=== PATIENT | female | born 1995 | race Caucasian/White ===

== ENCOUNTER → 2017-02-03 | Outpatient (REF) | payer BC | LOC: M SFHCWAGY 16:10 | PROVIDERS: ATTEND Nurse Practitioner Family | DX: Z12.4 Encounter for screening for malignant neoplasm of cervix (principal); Z11.3 Encounter for screening for infections with a predominantly sexual mode of transmission | CPT/HCPCS: 87491; 87591; G0123 ==

== ENCOUNTER → 2018-02-11 | Outpatient (REF) | payer BC ==
[2018-02-11 17:20] LABS: CHLAMYDIA DNA AMPLIFICATION NEGATIVE (NEGATIVE); GC DNA AMPLIFICATION NEGATIVE (NEGATIVE)
== END ==
LOC: M SFHCWAGY 14:47
DX: Z12.4 Encounter for screening for malignant neoplasm of cervix (principal); N94.6 Dysmenorrhea, unspecified
CPT/HCPCS: 87086

== ENCOUNTER → 2018-07-17 | Outpatient (REF) | payer BC ==
[2018-07-17 17:55] LABS: CHLAMYDIA DNA AMPLIFICATION NEGATIVE (NEGATIVE); GC DNA AMPLIFICATION NEGATIVE (NEGATIVE)
== END ==
LOC: M SFHCWAGY 15:42
DX: N30.01 Acute cystitis with hematuria (principal); R10.2 Pelvic and perineal pain; M54.5 Low back pain
CPT/HCPCS: 87186

== ENCOUNTER → 2018-10-01 | Outpatient (REF) | payer BC | LOC: M LAB REF 19:12 | PROVIDERS: ATTEND Physician Assistant | DX: N39.0 Urinary tract infection, site not specified (principal) ==

== ENCOUNTER → 2019-05-21 | Outpatient (REF) | payer BC | LOC: M SFHCWAGY 10:03 | PROVIDERS: ATTEND Nurse Practitioner Family | DX: N30.00 Acute cystitis without hematuria (principal) ==

== ENCOUNTER → 2020-04-26 | Outpatient (REF) | payer BC | LOC: M WUC 17:16 | PROVIDERS: ATTEND Nurse Practitioner Family | DX: R30.0 Dysuria (principal) ==

== ENCOUNTER → 2020-06-11 | Outpatient (REF) | payer BC | LOC: M WUC 17:20 | PROVIDERS: ATTEND Physician Assistant | DX: N39.0 Urinary tract infection, site not specified (principal) ==

== ENCOUNTER → 2020-06-26 | Outpatient (REF) | payer BC | LOC: M LAB REF 16:51 | PROVIDERS: ATTEND Physician Assistant | DX: N39.0 Urinary tract infection, site not specified (principal) ==

== ENCOUNTER → 2020-06-29 | Outpatient (REF) | payer BC | LOC: M SFHCWAGY 17:05 | PROVIDERS: ATTEND Nurse Practitioner Family | DX: Z11.3 Encounter for screening for infections with a predominantly sexual mode of transmission (principal) ==

== ENCOUNTER → 2020-07-12 | Outpatient (REF) | payer BC | LOC: M LAB REF 17:20 | PROVIDERS: ATTEND Physician Assistant | DX: N39.0 Urinary tract infection, site not specified (principal) ==

== ENCOUNTER → 2020-08-07 | Outpatient (REF) | payer BC ==
[2020-08-07 13:58] LABS: APPEARANCE, URINE TURBID (CLEAR); BACTERIA, URINE AUTO 3+ (NEGATIVE); BILIRUBIN, URINE AUTO NEGATIVE (NEGATIVE); BLOOD, URINE BLOOD 2+ (NEGATIVE); COLOR, URINE YELLOW (YELLOW); GLUCOSE, URINE (UA) AUTO NEGATIVE (NEGATIVE); KETONE, URINE AUTO 1+ mg/dL (NEGATIVE); LEUKOCYTE ESTERASE, URINE AUTO 3+ (NEGATIVE); MUCUS, URINE SMALL (NEGATIVE); NITRITE, URINE AUTO POSITIVE (NEGATIVE); PROTEIN, URINE AUTO 2+ mg/dL (NEGATIVE); RBC, URINE AUTO 77 /HPF (0-3); SPECIFIC GRAVITY URINE AUTO 1.014 (1.002-1.035); SQUAMOUS EPITHELIAL CELL UR AU 2 /HPF (0-6); UROBILINOGEN, URINE AUTO 0.2 mg/dL (0.0-2.0); WBC, URINE AUTO TNTC /HPF (0-3)
== END ==
LOC: M SMT 13:18
PROVIDERS: ATTEND Nurse Practitioner Family
DX: N39.0 Urinary tract infection, site not specified (principal)

== ENCOUNTER → 2020-08-24 | Outpatient (REF) | payer BC | LOC: M LAB REF 17:23 | PROVIDERS: ATTEND Physician Assistant | DX: J06.9 Acute upper respiratory infection, unspecified (principal) ==

== ENCOUNTER → 2020-09-07 | Outpatient (CLI) | payer BC ==
--- NOTE | 2020-09-07 10:26 | REP ---
INDICATION: RECURRENT UTI COMPARISON: None TECHNIQUE: Real time murray scale B-mode and color Doppler ultrasound examination using curved array transducer. FINDINGS: Right kidney measures 12.7 x 4.2 x 4.0 cm and includes subcentimeter lower pole cyst with small calcification. No hydronephrosis, nephrolithiasis, further cystic or renal mass lesion appreciated. Intrarenal vasculature is normal (RI 0.56). Left kidney measures 13.0 x 5.8 x 6.0 cm and demonstrates severe hydronephrosis with scattered nonobstructing calculi as well as 17 mm calculus possibly at the renal pelvis which may cause intermittent ureteropelvic junction obstruction. Intrarenal vasculature is normal (RI 0.63). Bladder demonstrates small amount of layering debris with normal bilateral ureteral jets. IMPRESSION: 1. Severe left-sided hydronephrosis with multiple calculi including a 17 mm calculus in the renal pelvis which may cause chronic/intermittent ureteropelvic junction obstruction. 2. Subcentimeter right renal cyst with small calcification. <Electronically signed by Roni Krause > 09/07/20 [id number]
== END ==
LOC: M RAD 09:37
PROVIDERS: ATTEND Nurse Practitioner Family
DX: N39.0 Urinary tract infection, site not specified (principal); N20.0 Calculus of kidney; N28.1 Cyst of kidney, acquired

== ENCOUNTER → 2020-09-21 | Outpatient (CLI) | payer BC ==
--- NOTE | 2020-09-21 10:58 | REP ---
INDICATION: KIDNEY STONE COMPARISON: None TECHNIQUE: Axial noncontrast images from the lung bases to the pubic symphysis with coronal and sagittal reformations. This CT examination was performed using the following dose reduction techniques: Automated exposure control, adjustment of mA and/or kv according to the patient's size, and use of iterative reconstruction technique. FINDINGS: The kidneys demonstrate bilateral medullary nephrocalcinosis. The left kidney demonstrates chronic grade 3 hydronephrosis with a 3 cm staghorn calculus forming in the renal pelvis causing UPJ obstruction. Liver, spleen, pancreas, gallbladder, and bilateral adrenal glands are normal. The enteric system is unremarkable and without obstruction or acute inflammatory process. Normal terminal ileum and appendix identified in the right lower quadrant. Pelvis demonstrates normal bladder and age-appropriate uterus/adnexa. No ascites. No free air. No adenopathy. No focal inflammatory stranding. Abdominal aorta without aneurysm. Musculoskeletal structures are intact and without acute osseous abnormality. IMPRESSION: 1. 3 cm staghorn calculus in the left renal pelvis causing UPJ obstruction and grade 3 hydronephrosis. Bilateral medullary nephrocalcinosis noted. <Electronically signed by Roni Krause > 09/21/20 [id number]
== END ==
LOC: M RAD 10:15
PROVIDERS: ATTEND Nurse Practitioner Family
DX: E83.59 Other disorders of calcium metabolism (principal); N29 Other disorders of kidney and ureter in diseases classified elsewhere; N13.30 Unspecified hydronephrosis

== ENCOUNTER → 2020-10-10 | Outpatient (POV) | payer BC ==
--- NOTE | 2020-10-12 10:51 | IRCOV ---
[facility] IR Consult Office Visit IR Consult Office Visit DATE: Oct 10, 2020 Patient agreed to the study for consultation. I spent 30 minutes gauri patient's records, imaging and out into the patient. REASON FOR CONSULTATION/CHIEF COMPLAINT: Left kidney stone. HISTORY OF PRESENT ILLNESS: 25-year-old female referred for left nephroureteral access for PCNL. Patient states she had recurrent UTIs for the past 2 years but more recently there is associated with systemic fevers and nausea. These used to occur every 2 months but now happen every 3 weeks. She requires antibiotics every time and symptoms disappear after a few days of antibiotics. She denies ever passing a stone or the colicky pain associated with a stone passing. She denies left flank pain, current fevers or chills. She does have a uncle who also has suffers with kidney stones. She denies any procedures on the kidneys in the past.. ALLERGIES: Please see below. HOME MEDICATIONS: Please see below. PAST MEDICAL HISTORY: UTIs PAST SURGICAL HISTORY: Cystoscopy FAMILY HISTORY: Uncle with history of kidney stones. SOCIAL HISTORY: Nonsmoker. Denies alcohol or drugs. REVIEW OF SYSTEMS: Otherwise negative. PHYSICAL EXAMINATION: No video on patient side. LABORATORY DATA: No labs in system. Imaging: I personally reviewed the CT abdomen and pelvis without contrast performed September 2020. Large calculus in the left left renal pelvis. There is also stone debris in the lower pole calyx. There is hydronephrosis. There is bilateral nephrocalcinosis. ASSESSMENT/PLAN: 25-year-old female with left kidney stone referred for antegr annmarie nephroureteral access for PCNL. We discussed the risks and benefits of the procedure and patient would like to proceed. We'll schedule the patient for pre- PCNL nephroureteral access. Thank you for this referral. CC GOKUL Hernandez MD Oct 12, 2020 10:51
== END ==
LOC: M TMIRPOV 10:49
PROVIDERS: ATTEND Radiology Diagnostic Radiology
DX: N20.0 Calculus of kidney (principal); Z87.440 Personal history of urinary (tract) infections

== ENCOUNTER 2020-11-02 06:43 | Observation (INO) | payer BC ==
[~2020-11-02] VITALS: Ht 170.2 cm; Wt 50.6 kg
[~2020-11-02 06:43] MED LIST: MYLAN
[2020-11-02] MEDS ORDERED: fentaNYL 100 MCG/2 ML INJECTION (J3010) As Ordered ONE ×2 (07:52→09:45)
[2020-11-02] MEDS ORDERED: diphenhydrAMINE 50MG/ML VIAL (J1200) As Ordered ONE (07:52)
[2020-11-02] MEDS ORDERED: ceFAZolin 1GM VIAL (J0690 PER 500MG) As Ordered ONE (07:53)
[2020-11-02] MEDS ORDERED: MIDAZOLAM INJ 2MG/2ML VIAL (J2250 PER 1MG) As Ordered ONE ×2 (07:53→09:46)
[2020-11-02] MEDS ORDERED: LIDOCAINE 1% MDV 20ML VIAL As Ordered ONE (07:54)
[2020-11-02] MEDS ORDERED: ISOVUE-300 61% 50ML VIAL As Ordered ONE (07:54)
[2020-11-02] MEDS ORDERED: PROMETHAZINE INJ 25 MG/ML VIAL (J2550) As Ordered ONE (08:01)
[2020-11-02 08:06] LABS: HEMATOCRIT 36.9 % (36.0-47.0); HEMOGLOBIN 12.2 g/dl (12.0-15.5); MEAN CORPUSCULAR HEMOGLOBIN 30.6 pg (27.0-33.0); MEAN CORPUSCULAR HGB CONC 33.1 g/dl (32.0-36.5); MEAN CORPUSCULAR VOLUME 92.5 fl (80.0-96.0); PLATELET COUNT, AUTOMATED 297 10^3/uL (150-450); RED BLOOD COUNT 3.99 10^6/uL (4.00-5.40); WHITE BLOOD COUNT 6.1 10^3/uL (4.0-10.0)
[2020-11-02 08:12] LABS: BLOOD UREA NITROGEN 10 MG/DL (7-18); CARBON DIOXIDE LEVEL 27 MEQ/L (21-32); CHLORIDE LEVEL 108 MEQ/L (98-107); CREATININE FOR GFR 0.62 MG/DL (0.55-1.30); GLOMERULAR FILTRATION RATE > 60.0 (>60); GLUCOSE, FASTING 100 MG/DL (70-100); POTASSIUM SERUM 3.5 MEQ/L (3.5-5.1); SODIUM LEVEL 140 MEQ/L (136-145)
--- NOTE | 2020-11-02 08:49 | IRHP ---
[facility] IR Pre-Procedure H & P General Date of Service: Nov 02, 2020 Procedure: Same Day Surgery Interval History and Physical I have seen the patient and reviewed last H & P performed within 30 days. There is no significant interval change. History of Present Illness Chief Complaint The patient is a 25-year-old female admitted with a reason for visit of Kidney Stone. PRE-PROCEDURE DIAGNOSIS: Left kidney stone. Needs PCNL access HEART: Normal rate. LUNGS: Normal breathing at rest. ASA Classification ASA Classification: I-Healthy Mallampati Score: II NPO: Yes Problems with prior sedation: No Obstructive Sleep Apnea: No Plan moderate sedation Allergies Coded Allergies: No Known Allergies (Unverified , 10/30/20) Home Medications Scheduled [mylan], 1 TAB DAILY, (Reported) VS, I&O, 24H, Fishbone Vital Signs/I&O Vital Signs Date Time Temp Pulse Resp B/P (MAP) Pulse Ox O2 Delivery O2 Flow Rate FiO2 11/02/20 07:30 98.9 85 20 100 Room Air Laboratory Data 24H LABS Laboratory Tests 2 11/02/20 07:30: Nucleated Red Blood Cells % (auto) 0.0, Anion Gap 5L, Glomerular Filtration Rate > 60.0, Calcium Level 9.0 CBC/BMP Laboratory Tests 11/02/20 07:30 GOKUL SHELTON MD Nov 02, 2020 08:49
[2020-11-02] MEDS ORDERED: KETOROLAC 30 MG/ML 1ML VIAL As Ordered ONE (09:36)
[2020-11-02] MEDS ORDERED: MEPERIDINE INJ 25 MG/ML VIAL (J2175) As Ordered ONE (10:55)
[2020-11-02] MEDS: ACETAMINOPHEN 500 MG TAB PO ONE ×2 (11:05→13:20)
[2020-11-02] MEDS ORDERED: NS 1,000 ML IV SCH (11:05)
[2020-11-02] MEDS: PIPERACILLIN/TAZOBACTAM SOD 3.375 GM in D5W MINI-BAG PLUS 50 ML IV ONE ×2 (11:05→12:11)
[2020-11-02] MEDS ORDERED: MEPERIDINE INJ 25 MG/ML VIAL (J2175) IV ONE (11:05)
[2020-11-02] MEDS ORDERED: ONDANSETRON 4MG/2ML VIAL As Ordered ONE (12:04)
[2020-11-02] MEDS: SODIUM CHLORIDE 0.9% 1000ML IV ONE ×2 (13:00→14:40)
[2020-11-02] MEDS ORDERED: VANCOMYCIN 1000MG/20ML VIAL As Ordered ONE (13:01)
[2020-11-02] MEDS ORDERED: ONDANSETRON 4MG/2ML VIAL IV PRN (13:45)
[2020-11-02] MEDS ORDERED: ACETAMINOPHEN TAB 650MG DOSE (2X325MG) PO PRN (14:35)
[2020-11-02 15:00] VITALS: BP 106/64
[2020-11-02 15:35] LABS: HEMATOCRIT 28.3 % (36.0-47.0); MEAN CORPUSCULAR HEMOGLOBIN 30.7 pg (27.0-33.0); MEAN CORPUSCULAR HGB CONC 33.2 g/dl (32.0-36.5); MEAN CORPUSCULAR VOLUME 92.5 fl (80.0-96.0); RED BLOOD COUNT 3.06 10^6/uL (4.00-5.40); WHITE BLOOD COUNT 2.5 10^3/uL (4.0-10.0)
[2020-11-02 15:42] LABS: HEMOGLOBIN 9.4 g/dl (12.0-15.5)
[2020-11-02 15:43] LABS: PLATELET COUNT, AUTOMATED 141 10^3/uL (150-450)
[2020-11-02] MEDS: NS 1,000 ML IV SCH ×3 (15:50→20:40)
[2020-11-02] MEDS: PERCOCET 5MG/325MG TAB PO PRN (15:58)
[2020-11-02 16:02] LABS: ALBUMIN 2.5 GM/DL (3.2-5.2); ALT/SGPT 12 U/L (12-78); BILIRUBIN,TOTAL 0.7 MG/DL (0.2-1.0); BLOOD UREA NITROGEN 8 MG/DL (7-18); CALCIUM LEVEL 7.5 MG/DL (8.5-10.1); CARBON DIOXIDE LEVEL 22 MEQ/L (21-32); CHLORIDE LEVEL 114 MEQ/L (98-107); CREATININE FOR GFR 0.58 MG/DL (0.55-1.30); GLOMERULAR FILTRATION RATE > 60.0 (>60); GLUCOSE, FASTING 102 MG/DL (70-100); POTASSIUM SERUM 3.1 MEQ/L (3.5-5.1); SODIUM LEVEL 143 MEQ/L (136-145); TOTAL PROTEIN 5.1 GM/DL (6.4-8.2)
--- NOTE | 2020-11-02 16:37 | IRPON ---
IR Postoperative Note Date Of Procedure: Nov 02, 2020 Time Of Procedure: 16:28 IR Postoperative Note Percutaneous nephrostomy catheter placement using fluoroscopic and ultrasound guidance. Nephrostogram and Ureterogram Ultrasound of the left kidney. Clinical Information:Left kidney stone. Referred for left PCNL access. Physician: Dr. Yin. Procedure: The patient was advised of the benefits, risks, and alternatives of the procedure and informed consent was obtained. A time out was performed with verification of the patient's name, MRN, site of procedure, and type of procedure to be performed. The patient was positioned in the prone position on the angiographic table. The site was prepped and draped in the usual sterile fashion. Moderate sedation was performed by the physician including the presence of an independent trained RN, who monitored the patient's level of consciousness and physiological status. Following the administration of fentanyl and Versed, the physician spent 60 minutes of continuous yyar-am-myan time with the patient. A solder deposit operator radiograph reveals radiopaque left renal calculus. The anticipated puncture site on the flank was anesthetized with lidocaine. Using ultrasound guidance, a posterior lower pole calyx was accessed with a 21 Gauge Chiba needle. A nephrostogram and ureterogram were performed demonstrating hydronephrosis and complete ureteropelvic junction obstruction. Large radiopaque stone in the renal pelvis.The lower pole calyx urine is thick and cloudy. A Flovilla wire was then advanced into the collecting system but could not be manipulated past the stone into the ureter. The needle was then exchanged for a nonvascular introducer set. An Amplatz wire was then advanced into the renal collecting system. An 8 Tamazight nephrostomy catheter was then advanced into the dilated lower pole calyx. The pigtail was formed and locked in position. A final nephrostogram and ureterogram were performed confirming positioning of the pigtail within the renal collecting system. Hydronephrosis and complete UPJ obstruction. The catheter was sutured in position with 2-0 Prolene and a sterile dressing applied. The catheter was placed to gravity drainage. The patient tolerated the procedure well and was returned to the PRU in stable condition. EBL: < 5 mL. Complications:Postprocedure in the recovery area patient developed fevers and chills. She was treated with vancomycin and Zosyn, hydrated aggressively with IV fluids, given antipyretics and Demerol. She is admitted to the hospitalist team for ongoing observation, hydration and IV antibiotics. Conclusion: 1. Nephrostogram and Ureterogram demonstratesevere left-sided hydronephrosis and complete ureteropelvic junction obstruction. 2. Successful left-sided nephrostomy catheter placement. Patient admitted under hospitalist team for treatment for urosepsis. Cc GOKUL Hernandez MD Nov 02, 2020 16:37
--- NOTE | 2020-11-02 17:34 | HPEPDOC ---
General Date of Admission Nov 02, 2020 at 12:40 Date of Service: Nov 02, 2020 Primary Care Physician: A Attending Physician: ARNIE BAÑUELOS MD Chief Complaint The patient is a 25-year-old female admitted with a reason for visit of Kidney Stone. Source: Patient, RN/MD Exam Limitations: No limitations Timing/Duration: 1-3 hours Severity: Moderate Associated Symptoms: Chills History of Present Illness 25 yo W with a history of frequent UTIs s/p cystoscopy in 2019, and most recently was diagnosed with a L renal stone c/b L hydronephrosis and was sent to IR by urology as an outpatient for a L nephrostomy tube placement. She had the L neph tube placed today by Dr German and was noted to have chills and rigors post procedure. She was given empiric zosyn and recommended for admission for at least observation and infectious workup. On the floor, she is hemodynamically stable and afebrile and reporting post procedural L flank pain that is well controlled with the current IR ordered percocet. She otherwise has no other significant medical history that she endorsed to me. On ROS, she reported recent mild dysuria, L flank pain but without fevers, N/V/D, hematuria, abdominal pain chest pain, palpitations or recent URI symptoms. She has no chronic medications except for control pills and chronic medical conditions beyond frequent UTIs. Home Medications Scheduled [mylan] , 1 TAB DAILY, (Reported) Allergies Coded Allergies: No Known Allergies (Unverified , 10/30/20) Past Medical History Medical History frequent UTIs. Surgical History 2019 cystoscopy 11/02/2020 L nephrostomy placement Family History Significant Family History: Hypertension Social History * Smoker: Denies Alcohol: Denies Drugs: denies Recent Travel/Sick Contacts: Denies: Recent travel, Recent sick contacts Psychosocial History: No pertinent psych hx A-FIB/CHADSVASC A-FIB History Current/History of A-Fib/PAF?: No Current PO Anticoag Therapy: No Age/Risk Factor Scoring CHADSVASC: CHADSVASC Response (Comments) Value Age Risk Factor Age < 65 years old 0 Gender Risk Factor Female 1 Hx of CHF No 0 Hx of HTN No 0 Hx of Stroke/TIA/or VTE No 0 Hx of Diabetes No 0 Hx of Vascular Disease No 0 Total 1 Treatment Treatment ordered: NONE Reason Anticoagulant not given: Not indicated/[id number] Review of Systems Constitutional: Reports: Chills; Denies: Fever, Night Sweats, Weakness, Fatigue, Weight Loss, Lethargy Eyes: Denies: Pain, Vision change ENT: Denies: Head Aches, Ear Pain, Dysphagia Skin: Denies: Rash, Lesions, Breakdown Pulmonary: Denies: Dyspnea, Cough Cardiovascular: Denies: Chest Pain, Palpitations, Orthopnea, Paroxysmal Noc. Dyspnea, Lt Headedness Gastrointestinal: Reports: Other Symptoms (L flank pain); Denies: Nausea, Vomiting, Abdominal Pain, Diarrhea Genitourinary: Reports: Dysuria; Denies: Frequency, Incontinence, Hematuria, Retention Hematologic: Denies: Bruising, Bleeding Excessively Endocrine: Denies: Polydipsia, Polyphagia, Polyuria, Heat Intolerance, Cold Intolerance, Other Endocrine Sx Musculoskeletal: Denies: Neck Pain, Back Pain, Joint Pain, Muscle Pain, Spasms Neurological: Denies: Weakness, Numbness, Change in speech, Confusion Psych: Reports: Mood Normal; Denies: Depression, Memory Issues Physical Examination General Exam: Positive: Alert, No Acute Distress Eye Exam: Positive: PERRLA, Conjunctiva & lids normal, EOMI; Negative: Sclera icteric ENT Exam: Positive: Atraumatic, Mucous membr. moist/pink, Pharynx Normal Neck Exam: Positive: Supple; Negative: JVD, thyromegaly Chest Exam: Positive: Clear to auscultation, Normal air movement Heart Exam: Positive: Rate Normal, Regular Rhythm, Normal S1, Normal S2; Negative: Murmurs, Rubs Abdomen Exam: Positive: Normal bowel sounds, Soft, Other (L nephrostomy bag draining blood tinged urine); Negative: Tenderness, Hepatospenomegaly Extremity Exam: Positive: Normal pulses; Negative: Clubbing, Cyanosis, Edema Skin Exam: Positive: Nl turgor and temperature; Negative: Breakdown, Lesion Neuro Exam: Positive: Normal Gait, Normal Speech, Cranial Nerves 3-12 NL, Reflexes 2+ Psych Exam: Positive: Mental status NL, Mood NL, Oriented x 3 Vital Signs Vital Signs Date Time Temp Pulse Resp B/P (MAP) Pulse Ox O2 Delivery O2 Flow Rate FiO2 11/02/20 15:58 19 Room Air 11/02/20 15:00 99.5 113 106/64 (78) 97 11/02/20 10:05 2 Laboratory Data Labs 24H Laboratory Tests 2 11/02/20 07:30: Nucleated Red Blood Cells % (auto) 0.0, Anion Gap 5L, Glomerular Filtration Rate > 60.0, Calcium Level 9.0 11/02/20 15:14: Nucleated Red Blood Cells % (auto) 0.0, Anion Gap 7L, Glomerular Filtration Rate > 60.0, Calcium Level 7.5#L, Total Bilirubin 0.7, Aspartate Amino Transf (AST/SGOT) 12, Alanine Aminotransferase (ALT/SGPT) 12, Alkaline Phosphatase 107, Total Protein 5.1L, Albumin 2.5L, Albumin/Globulin Ratio 1.0L CBC/BMP Laboratory Tests 11/02/20 07:30 11/02/20 15:14 Microbiology Microbiology 11/02/20 Blood Culture, Received Pending 11/02/20 Blood Culture, Received Pending Assessment/Plan 25 yo W with a history of frequent UTIs, recently diagnosed with an obstructing L kidney stone with associated L hydronephrosis who presented to IR for L nephrostomy placement and course was c/b post procedural rigors c/f infection now admitted to medicine. L kidney stone with associated hydronephrosis -POD0 s/p nephrostomy, draining well -on empiric zosyn -will follow up with IR and urology in the outpatient setting Postprocedural rigors with a history of frequent UTIs -send UA w/ reflex to Cx -BCx -empiric zosyn -s/p fluids per IR DVT ppx: heparin TID Plan / VTE VTE Prophylaxis Ordered?: Yes ARNIE BAÑUELOS MD Nov 02, 2020 17:34
[2020-11-02] MEDS ORDERED: POTASSIUM CHLORIDE 10 MEQ SR TABLET PO ONE (17:45)
[2020-11-02] MEDS: PIPERACILLIN/TAZOBACTAM SOD 3.375 GM in D5W MINI-BAG PLUS 50 ML IV SCH (17:49)
[2020-11-02 18:35] VITALS: BP 105/64
[2020-11-02] MEDS ORDERED: DROSPIRENONE ETHINYL ESTRADIOL PO SCH (21:00)
[2020-11-02] MEDS: HEPARIN SOD (PORCINE) 5000UNITS/ML 1ML VIAL/SYRINGE SC SCH (21:51)
[2020-11-02 22:00] VITALS: BP 108/76
[2020-11-03] MEDS: PIPERACILLIN/TAZOBACTAM SOD 3.375 GM in D5W MINI-BAG PLUS 50 ML IV SCH ×2 (00:01→06:07)
[2020-11-03] MEDS: NS 1,000 ML IV SCH ×2 (01:48→06:07)
[2020-11-03] MEDS: PERCOCET 5MG/325MG TAB PO PRN (02:22)
[2020-11-03 06:00] VITALS: BP 112/78
[2020-11-03 06:39] LABS: HEMOGLOBIN 8.7 g/dl (12.0-15.5); MEAN CORPUSCULAR HGB CONC 33.5 g/dl (32.0-36.5); MEAN CORPUSCULAR VOLUME 92.5 fl (80.0-96.0); PLATELET COUNT, AUTOMATED 141 10^3/uL (150-450); RED BLOOD COUNT 2.81 10^6/uL (4.00-5.40); WHITE BLOOD COUNT 12.9 10^3/uL (4.0-10.0)
[2020-11-03 07:06] LABS: BLOOD UREA NITROGEN 8 MG/DL (7-18); CALCIUM LEVEL 7.2 MG/DL (8.5-10.1); CARBON DIOXIDE LEVEL 23 MEQ/L (21-32); CHLORIDE LEVEL 113 MEQ/L (98-107); CREATININE FOR GFR 0.52 MG/DL (0.55-1.30); GLOMERULAR FILTRATION RATE > 60.0 (>60); GLUCOSE, FASTING 104 MG/DL (70-100); POTASSIUM SERUM 3.6 MEQ/L (3.5-5.1); SODIUM LEVEL 141 MEQ/L (136-145)
--- NOTE | 2020-11-03 09:22 | DS.PDOC ---
Discharge Summary General Date of Admission Nov 02, 2020 at 12:40 Date of Discharge 11/03/2020 Attending Physician: ARNIE BAÑUELOS MD Discharge Summary PROCEDURES PERFORMED DURING STAY: L nephrostomy placement on 11/02/2020 ADMITTING DIAGNOSES: UTI DISCHARGE DIAGNOSES: UTI Obstructing kidney stone c/b L hydronephrosis s/p L nephrostomy placement by IR COMPLICATIONS/CHIEF COMPLAINT: Kidney Stone. HISTORY OF PRESENT ILLNESS: 25 yo W with a history of frequent UTIs s/p cystoscopy in 2019, and most recently was diagnosed with a L renal stone c/b L hydronephrosis and was sent to IR by urology in the outpatient setting for a L nephrostomy tube placement. She had the L neph tube placed on 11/02/[address] German and was noted to have chills and rigors post procedure. She was given empiric zosyn and recommended for admission for at least observation and infectious workup. HOSPITAL COURSE: On the floor, she was hemodynamically stable and afebrile and reporting post procedural L flank pain that was well controlled with the PRN percocet. She otherwise has no other significant medical history that she endorsed. On ROS, she reported recent mild dysuria, L flank pain but without fevers, N/V/D, hematuria, abdominal pain chest pain, palpitations or recent URI symptoms. She has no chronic medications except for control pills and chronic medical conditions beyond frequent UTIs. Her UA was positive and given the history of pansensitive E.coli many times, she was switched to oral Keflex and is now being discharged home with a 7 day course. Before discharge, will draw another set of blood cultures and will make close PCP appt to follow up urine cultures in the event that she has resistant organisms or symptoms persist. DISCHARGE MEDICATIONS: Please see below. ALLERGIES: Please see below. PHYSICAL EXAMINATION ON DISCHARGE: VITAL SIGNS: Please see below. General: Alert, No Acute Distress Eyes: PERRLA, Conjunctiva & lids normal, EOMI, anicteric ENT: Atraumatic, Mucous membr. moist/pink, Pharynx Normal Neck: Supple Chest: Clear to auscultation, Normal air movement Heart: Rate Normal, Regular Rhythm, Normal S1, Normal S2, no m/r/g Abdomen: Normal bowel sounds, Soft, has L nephrostomy bag draining pink blood tinged urine otherwise clearing Extremities: Normal pulses, no edema, WWP Skin: Nl turgor and temperature, no rashes or lesions Neuro: Normal Gait, Normal Speech, Cranial Nerves 3-12 NL Psych: Mental status NL, Mood NL, Oriented x 3 LABORATORY DATA: Please see below. IMAGING: None this admission PROGNOSIS: Good ACTIVITY: As tolerated DIET: Regular DISCHARGE PLAN: Home with 7d of keflex and close PCP follow up DISPOSITION: Home DISCHARGE INSTRUCTIONS: Home with 7d of keflex and close PCP follow up ITEMS TO FOLLOWUP ON ON OUTPATIENT: Rigors post neph tube placement and found to have a UTI, on 7d of keflex with a history of pansensitive Ecoli DISCHARGE CONDITION: Stable TIME SPENT ON DISCHARGE: 35 minutes. Vital Signs/I&Os Vital Signs Date Time Temp Pulse Resp B/P (MAP) Pulse Ox O2 Delivery O2 Flow Rate FiO2 11/03/20 06:00 97.9 90 18 112/78 (89) 99 11/03/20 02:52 Room Air 11/02/20 10:05 2 I&O- Last 24 Hours up to 6 AM 11/03/20 05:59 Intake Total 5550 ml Output Total 3700 ml Balance 1850 ml Laboratory Data Labs 24H Laboratory Tests 2 11/02/20 15:14: Nucleated Red Blood Cells % (auto) 0.0, Anion Gap 7L, Glomerular Filtration Rate > 60.0, Calcium Level 7.5#L, Total Bilirubin 0.7, Aspartate Amino Transf (AST/SGOT) 12, Alanine Aminotransferase (ALT/SGPT) 12, Alkaline Phosphatase 107, Total Protein 5.1L, Albumin 2.5L, Albumin/Globulin Ratio 1.0L 11/02/20 18:46: Coronavirus (COVID-19)(PCR) NEGATIVE 11/02/20 18:50: Urine Color YELLOW, Urine Appearance HAZY, Urine pH 5.0, Urine Specific [place] 1.012, Urine Protein NEGATIVE, Urine Glucose (UA) NEGATIVE, Urine Ketones 1+H, Urine Blood 3+H, Urine Nitrite NEGATIVE, Urine Bilirubin NEGATIVE, Urine Urobilinogen 2.0H, Urine Leukocyte Esterase TRACEH, Urine WBC (Auto) 18H, Urine RBC (Auto) 30H, Urine Hyaline Casts (Auto) 0, Urine Bacteria (Auto) 2+H, Urine Squamous Epithelial Cells 3, Urine Mucus (Auto) SMALL, Urine Sperm (Auto) 11/03/20 06:26: Nucleated Red Blood Cells % (auto) 0.0, Anion Gap 5L, Glomerular Filtration Rate > 60.0, Calcium Level 7.2L CBC/BMP Laboratory Tests 11/02/20 15:14 11/03/20 06:26 Microbiology Microbiology 11/02/20 Urine Culture, Received Pending 11/02/20 Blood Culture, Received Pending 11/02/20 Blood Culture, Received Pending Discharge Medications Scheduled [mylan] , 1 TAB DAILY, (Reported) Allergies Coded Allergies: No Known Allergies (Unverified , 10/30/20) ARNIE BAÑUELOS MD Nov 03, 2020 09:22
[2020-11-03] MEDS ORDERED: CEPH250T PO (09:34)
[2020-11-03] MEDS ORDERED: PERCOCET PO (09:34)
[2020-11-03] MEDS ORDERED: ACET1TAB55 PO (09:34)
[2020-11-03] MEDS: HEPARIN SOD (PORCINE) 5000UNITS/ML 1ML VIAL/SYRINGE SC SCH (09:50)
[2020-11-03] MEDS ORDERED: CEPHALEXIN 250MG CAPSULE PO SCH (12:00)
[2020-11-03] MEDS ORDERED: VANCOMYCIN HCL 1,000 MG, VIAL MATE ADAPTER 1 EACH in NS 250 ML IV SCH (14:00)
[2020-11-06] MEDS ORDERED: DROS3TAB (08:13)
== END 2020-11-03 11:31 | disposition home or self-care (01) ==
LOC: M IRPRO 06:43 → M MSPAV 08:30 → INTOOBSV 12:40 → M MSPAV 12:40 → UNDOADMOB 12:40 → UNDODISOB 11-03 11:31
PROVIDERS: ADMIT Radiology Diagnostic Radiology; ATTEND Internal Medicine
DX: N13.2 Hydronephrosis with renal and ureteral calculous obstruction (principal); Z87.440 Personal history of urinary (tract) infections; N39.0 Urinary tract infection, site not specified; R68.83 Chills (without fever); R68.89 Other general symptoms and signs; Z79.3 Long term (current) use of hormonal contraceptives; Z86.19 Personal history of other infectious and parasitic diseases
CPT/HCPCS: 36415; 50432; 80048; 80053; 81001; 85027; 87040; 87086; 96365; 96372; 96374; 96375; 96376; 99152; 99153; C1729; C1758; C1769; C1887; C1894; J0690; J1200; J1644; J1885; J2175; J2250; J2405; J2543; J3010; J3370; Q9967; U0002

== ENCOUNTER → 2020-11-08 | Outpatient (CLI) | payer BC ==
[~2020-11-08] MED LIST changes: +ACET1TAB55 PO; +CEPH250T PO; +DROS3TAB; +PERCOCET PO
[2020-11-08 11:33] LABS: APPEARANCE, URINE CLEAR (CLEAR); BACTERIA, URINE AUTO NEGATIVE (NEGATIVE); BILIRUBIN, URINE AUTO NEGATIVE (NEGATIVE); BLOOD, URINE BLOOD NEGATIVE (NEGATIVE); COLOR, URINE STRAW (YELLOW); GLUCOSE, URINE (UA) AUTO NEGATIVE (NEGATIVE); KETONE, URINE AUTO NEGATIVE (NEGATIVE); LEUKOCYTE ESTERASE, URINE AUTO 1+ (NEGATIVE); NITRITE, URINE AUTO NEGATIVE (NEGATIVE); PROTEIN, URINE AUTO NEGATIVE (NEGATIVE); RBC, URINE AUTO 0 /HPF (0-3); SPECIFIC GRAVITY URINE AUTO 1.004 (1.002-1.035); SQUAMOUS EPITHELIAL CELL UR AU 2 /HPF (0-6); UROBILINOGEN, URINE AUTO 0.2 mg/dL (0.0-2.0); WBC, URINE AUTO 1 /HPF (0-3)
--- NOTE | 2020-11-08 14:06 | REP ---
INDICATION: CALCULUS OF KIDNEY; PREOP LAB 1ST EKG 2ND XR 3RD COMPARISON: None. TECHNIQUE: PA/Lateral FINDINGS: Lungs: Clear, no infiltrate. Heart: Normal in size. Mediastinum: Mediastinal silhouette unremarkable. Pleural angles: There is a small right pleural effusion.. Bones and soft tissues: Unremarkable. IMPRESSION: Small right pleural effusion. No evidence of parenchymal infiltrate. <Electronically signed by Fernandez Richmond > 11/08/20 [id number]
--- NOTE | 2020-11-09 09:17 | ECGEPIP ---
[facility] Test Date: 2020-11-08 Pat Name: DIANA GARCIA Department: Room: - Gender: Female Contracts Paralegal: KEVIN : 1995 Requested By: Orlando POPE Order Number: [id number] Reading MD: Moy Eller Measurements Intervals [place] Rate: 80 P: -7 NM: 138 QRS: 71 QRSD: 82 T: 65 QT: 366 QTc: 422 Interpretive Statements Normal sinus rhythm Normal EKG Comparison tracing not on file Electronically Signed on 11-09-2020 9:17:14 EDT by Moy Eller
== END ==
LOC: M LAB 10:36
PROVIDERS: ATTEND Nurse Practitioner Family
DX: Z01.818 Encounter for other preprocedural examination (principal); N20.0 Calculus of kidney

== ENCOUNTER → 2020-11-08 | Outpatient (CLI) | payer BC | LOC: M LABSMTC 10:02 | PROVIDERS: ATTEND Anesthesiology | DX: Z01.812 Encounter for preprocedural laboratory examination (principal); Z20.822 Contact with and (suspected) exposure to COVID-19 ==

== ENCOUNTER 2020-11-13 06:08 | Inpatient (IN) | payer BC ==
[~2020-11-13] VITALS: Ht 170.2 cm; Wt 51.7 kg
[2020-11-13] VITALS (7 sets, daily range): BP systolic 125–142; BP diastolic 76–88
[2020-11-13 06:59] LABS: INR 0.88; PROTHROMBIN TIME 12.1 SECONDS (12.5-14.3)
[2020-11-13 07:00] LABS: PARTIAL THROMBOPLASTIN TIME 26.1 SECONDS (24.2-38.5)
[2020-11-13] MEDS ORDERED: LR 1,000 ML IV ONE (07:00)
[2020-11-13] MEDS ORDERED: ceFAZolin SOD 2 GM in IV 1 EA IV ONE (07:00)
[2020-11-13] MEDS ORDERED: PERCOCET 5MG/325MG TAB PO PRN (07:30)
[2020-11-13] MEDS ORDERED: ONDANSETRON 4MG/2ML VIAL IV PRN ×2 (07:30→11:05)
[2020-11-13] MEDS ORDERED: ACETAMINOPHEN TAB 650MG DOSE (2X325MG) PO PRN (07:30)
[2020-11-13] MEDS ORDERED: CONRAY-60 60% 50ML VIAL (Q9961) As Ordered ONE (07:43)
[2020-11-13] MEDS ORDERED: dexameTHASONE 4 MG/ML 1ML VIAL (J1100 PER 1MG) As Ordered ONE (08:08)
[2020-11-13] MEDS ORDERED: LIDOCAINE 2% 100MG/5ML SDV (FOR ANES.) As Ordered ONE (08:08)
[2020-11-13] MEDS ORDERED: ROCURONIUM BROMIDE 50 MG/5 ML VIAL As Ordered ONE (08:08)
[2020-11-13] MEDS ORDERED: propofoL 200 MG/20 ML VIAL As Ordered ONE (08:08)
[2020-11-13] MEDS ORDERED: ONDANSETRON 4MG/2ML VIAL As Ordered ONE (08:08)
[2020-11-13] MEDS ORDERED: fentaNYL 250 MCG/5 ML INJECTION (J3010) As Ordered ONE (08:08)
[2020-11-13] MEDS ORDERED: PHENYLephrine 500MCG 5ML (100MCG/ML) SYRINGE As Ordered ONE (08:08)
[2020-11-13] MEDS ORDERED: ePHEDrine SULFATE 25 MG/5 ML(5MG/ML) SYRINGE As Ordered ONE (08:08)
[2020-11-13] MEDS ORDERED: MIDAZOLAM INJ 2MG/2ML VIAL (J2250 PER 1MG) As Ordered ONE (08:08)
[2020-11-13] MEDS ORDERED: NEOSTIGMINE 10MG/10ML VIAL (J2710 PER 0.5MG) As Ordered ONE (08:21)
[2020-11-13] MEDS ORDERED: GLYCOPYRROLATE INJ 0.2 MG/ML 2 ML VIAL As Ordered ONE (08:21)
[2020-11-13] MEDS ORDERED: ACETAMINOPHEN 1000MG 100ML IV BTL (OFIRMEV) (J0131 PER 10MG) As Ordered ONE (08:23)
[2020-11-13] MEDS ORDERED: fentaNYL 100 MCG/2 ML INJECTION (J3010) IV PRN (11:05)
[2020-11-13] MEDS ORDERED: LR 1,000 ML IV SCH (11:05)
[2020-11-13] MEDS ORDERED: oxyCODONE 5MG TAB PO PRN (11:05)
[2020-11-13 11:20] LABS: HEMATOCRIT 32.1 % (36.0-47.0); HEMOGLOBIN 10.5 g/dl (12.0-15.5); MEAN CORPUSCULAR HGB CONC 32.7 g/dl (32.0-36.5); MEAN CORPUSCULAR VOLUME 91.7 fl (80.0-96.0); PLATELET COUNT, AUTOMATED 426 10^3/uL (150-450); WHITE BLOOD COUNT 11.3 10^3/uL (4.0-10.0)
--- NOTE | 2020-11-13 11:20 | REP ---
INDICATION: NEPHROLITHIASIS. COMPARISON: CT study September 21, 2020.. TECHNIQUE: Eight views. 200.2 seconds of fluoroscopy time is reported. FINDINGS: A sequence of 8 fluoroscopically obtained last image hold spot radiographs of the left abdomen document large bore percutaneous access to the intrarenal collecting system on the left, cyst stone therapy, and ureteral stent tube placement IMPRESSION: Procedural imaging. <Electronically signed by Brian San > 11/13/20 1118
--- NOTE | 2020-11-13 11:22 | ROOPDOC ---
[facility] Report Of Operation Report of Operation DATE OF PROCEDURE: 11/13/20 PREPROCEDURE DIAGNOSIS: Left kidney stone. POSTPROCEDURE DIAGNOSIS: Left kidney stone. PROCEDURE: Left percutaneous nephrolithotomy, left antegrade nephrostogram with intraoperative interpretation of images, left ureteroscopy with basket extraction of stone, left ureteral stent placement. SURGEON: Dr. Rakel Schaefer EXECUTIVE COORDINATOR: None ANESTHESIA: General. OPERATIVE INDICATIONS: This is a 25 year-old female with a 4cm obstructing left ureteropelvic junction stone. She was brought to the operating room today for t he above-listed procedure. DESCRIPTION OF PROCEDURE: The patient was brought to the operating room, and general anesthesia was induced. Prophylactic antibiotics were infused. A Nam catheter was placed under sterile conditions. The patient was then repositioned in the prone position in preparation for a left-sided percutaneous nephrolithotomy. The patient was then prepped and draped in the usual sterile fashion. At this point, the previously-placed left nephrostomy tube was utilized to advance a Amplatz Super Stiff wire down into the lower pole of the left kidney. The nephrostomy tube was then removed, leaving the wire in place. Next, a 2-3 cm transverse incision was made adjacent to the wire. A dual-lumen ureteral catheter was then advanced down into the left kidney. The large stone could easily be seen on fluoroscopy. An antegrade nephrostogram was performed and was negative for extravasation. A Motion guidewire was then advanced down the left kidney. The dual-lumen ureteral catheter was then removed, leaving both wires in place. The Motion wire was then secured to the drape to serve as a safety wire. Next, over the Super Stiff wire, a balloon dilator was advanced into the left renal pelvis. The balloon was then inflated and left in place for a few seconds. Next, an access sheath was advanced over the balloon into the lower pole calyx of the left kidney. The balloon was then let down and removed, leaving the access sheath and the wire in place. At this point, a nephroscope was introduced into the left kidney. We were able to identify the large stone. The stone was then fragmented into several pieces and suctioned out using a ShockPulse lithotriptor. It appeared that all of the stone was removed. The nephroscope was then removed, and I then introduced a flexible cystoscope into the kidney. This was used to identify the renal pelvis and at this point a Motion wire was advanced down the ureter and into the bladder. Once this was done, the 2 previously placed wires were removed. The cystoscope was removed and the new Motion wire was utilized to advance a dual lumen ureteral catheter into the renal pelvis. I then used this to advance another wire down the ureter and into the bladder. Once this was done, I attempted to advance a #7-Maltese x 22-32 cm double J ureteral stent down into the left collecting system. It would not advance through the distal ureter. The stent was then removed and a flexible ureteroscope was advanced over the wire and down the left collecting system. In the distal ureter, an approximately 6mm stone fragment was seen. This was removed using a basket. Once this was done, I attempted to advance the #7 Maltese stent down again and it would not go through the distal ureter. This stent was removed, and I tried a #6-Maltese x 22-32 cm stent and this went down the ureter easier. The wire was removed and there were adequate curls of the stent in the bladder and the left kidney. At this point, the access sheath was removed, and the Motion wire was utilized to advance a #18-Maltese Gambell tip catheter down into the left collecting system. After the tip was within the renal pelvis, the balloon was inflated with about 3 mL of contrast. The Gambell tip catheter was also utilized to shoot an antegrade nephrostogram, and this was negative for extravasation. We then secured the Gambell tip catheter to the skin with a #2-0 silk suture. This was then connected to gravity drainage and marked the conclusion of the procedure. The patient was placed back in supine position, awakened from anesthesia, and transported to the recovery room in stable condition. ESTIMATED BLOOD LOSS: approximately 50 mL COMPLICATIONS: None. SPECIMENS: Left kidney stone fragments. PLAN: The patient will be admitted to the hospital postoperatively. I will likely remove her left nephrostomy catheter tomorrow. She will be discharged home with the plan to bring her to the office in 3-4 weeks to remove her stent. RAKEL SCHAEFER MD Nov 13, 2020 11:22
[2020-11-13 11:39] LABS: BLOOD UREA NITROGEN 10 MG/DL (7-18); CALCIUM LEVEL 8.6 MG/DL (8.5-10.1); CARBON DIOXIDE LEVEL 22 MEQ/L (21-32); CHLORIDE LEVEL 108 MEQ/L (98-107); CREATININE FOR GFR 0.66 MG/DL (0.55-1.30); GLOMERULAR FILTRATION RATE > 60.0 (>60); GLUCOSE, FASTING 164 MG/DL (70-100); POTASSIUM SERUM 3.8 MEQ/L (3.5-5.1); SODIUM LEVEL 138 MEQ/L (136-145)
[2020-11-13] MEDS: NS 1,000 ML IV SCH ×3 (12:06→23:40)
[2020-11-13] MEDS: ceFAZolin SOD 1 GM in D5W MINI-BAG PLUS 50 ML IV SCH ×2 (16:21→23:43)
[2020-11-13] MEDS: DOCUSATE SODIUM 100MG CAPSULE PO SCH (20:05)
[2020-11-13] MEDS: PERCOCET 5MG/325MG TAB PO PRN (20:30)
[2020-11-13] MEDS ORDERED: DROSPIRENONE ETHINYL ESTRADIOL PO SCH (21:00)
[2020-11-13] MEDS: oxyBUTYnin 5 MG TAB PO PRN (22:52)
[2020-11-13] MEDS ORDERED: diphenhydrAMINE 50MG/ML VIAL (J1200) IM ONE (23:35)
[2020-11-13] MEDS ORDERED: diphenhydrAMINE 50MG/ML VIAL (J1200) IV ONE (23:35)
[2020-11-14] MEDS: MORPHINE 2 MG/ML 1ML VIAL (J2270) IV PRN ×2 (00:24→04:10)
[2020-11-14 02:00] VITALS: BP 131/87
[2020-11-14 05:20] VITALS: BP 131/88
[2020-11-14 07:17] LABS: HEMOGLOBIN 10.8 g/dl (12.0-15.5); MEAN CORPUSCULAR HEMOGLOBIN 29.9 pg (27.0-33.0); MEAN CORPUSCULAR HGB CONC 32.7 g/dl (32.0-36.5); MEAN CORPUSCULAR VOLUME 91.4 fl (80.0-96.0); PLATELET COUNT, AUTOMATED 380 10^3/uL (150-450); RED BLOOD COUNT 3.61 10^6/uL (4.00-5.40); WHITE BLOOD COUNT 13.1 10^3/uL (4.0-10.0)
[2020-11-14 07:41] LABS: BLOOD UREA NITROGEN 6 MG/DL (7-18); CALCIUM LEVEL 8.5 MG/DL (8.5-10.1); CARBON DIOXIDE LEVEL 24 MEQ/L (21-32); CHLORIDE LEVEL 108 MEQ/L (98-107); CREATININE FOR GFR 0.52 MG/DL (0.55-1.30); GLOMERULAR FILTRATION RATE > 60.0 (>60); GLUCOSE, FASTING 93 MG/DL (70-100); SODIUM LEVEL 139 MEQ/L (136-145)
[2020-11-14] MEDS: oxyBUTYnin 5 MG TAB PO PRN (08:23)
[2020-11-14] MEDS: DOCUSATE SODIUM 100MG CAPSULE PO SCH (08:23)
[2020-11-14] MEDS: PERCOCET 5MG/325MG TAB PO PRN (08:24)
--- NOTE | 2020-11-14 09:48 | IPNPDOC ---
Subjective Review oF Systems Chief Complaint The patient is a 25-year-old female admitted with a reason for visit of Nephrolithiasis. Events since Last Encounter Patient noting moderate suprapubic discomfort from bladder spasms. Has not ambulated yet. No n/v. No f/c/ns. Objective Physical Examination General Exam: Alert, Cooperative, No Acute Distress ABDOMEN EXAM: Soft Skin Exam: Nl turgor and temperature Neuro Exam: Normal Speech Psych Exam: Mental status NL, Mood NL Other physical findings L nephrostomy catheter draining light pink urine; L flank incision clean/ dry/intact; Nam draining vishal colored urine Vital Signs/I&O Vital Signs Date Time Temp Pulse Resp B/P (MAP) Pulse Ox O2 Delivery O2 Flow Rate FiO2 11/14/20 08:24 16 11/14/20 05:20 99.4 93 131/88 (102) 96 Room Air I&O- Last 24 Hours up to 6 AM 11/14/20 06:00 Intake Total 1985 ml Output Total 3255 ml Balance -1270 ml Laboratory Data Labs 24H Laboratory Tests 2 11/13/20 10:54: Nucleated Red Blood Cells % (auto) 0.0, Anion Gap 8, Glomerular Filtration Rate > 60.0, Calcium Level 8.6 11/14/20 06:28: Nucleated Red Blood Cells % (auto) 0.0, Anion Gap 7L, Glomerular Filtration Rate > 60.0, Calcium Level 8.5 CBC/BMP Laboratory Tests 11/13/20 10:54 11/14/20 06:28 Assessment/Plan Date Seen The patient was seen on 11/14/20. Patient Summary This is a 25 y/o F POD1 s/p L PCNL. Hb stable. Good UOP from the L nephrostomy catheter and the Nam. Plan/VTE VTE Prophylaxis Ordered?: Yes VTE Exclusion Mechanical Proph: N/A:VTE Prophy Ordered Plan - L nephrostomy catheter removed this morning - urine through the Nam has remained clear - will d/c Nam now - IVF d/c'd - percocet prn pain - oxybutynin prn bladder spasms - ambulate - strict I/Os - SCDs when in bed - advance diet as tolerated - likely discharge home later today if pain is controlled RAKEL SCHAEFER MD Nov 14, 2020 09:48
[2020-11-14] MEDS ORDERED: DOK1CAP7 PO (12:21)
[2020-11-14] MEDS ORDERED: CIPR-249 PO (12:21)
[2020-11-14] MEDS ORDERED: OXYB5TAB10 PO (12:21)
[2020-11-14] MEDS ORDERED: PERCOCET PO (12:21)
--- NOTE | 2020-11-14 12:55 | DSES ---
DISCHARGE SUMMARY DATE OF ADMISSION: 11/13/2020 DATE OF DISCHARGE: 11/14/2020 ADMISSION DIAGNOSIS: Left kidney stone. DISCHARGE DIAGNOSIS: Left kidney stone. ADMITTING PHYSICIAN: Kevon Hoffman M.D. DISCHARGING PHYSICIAN: Kevon Hoffman M.D. PROCEDURE PERFORMED: Left percutaneous nephrolithotomy, November 13, 2020. HISTORY OF PRESENT ILLNESS: This is a 25-year-old female who was found to have an approximately 4 cm left kidney stone who underwent the above listed procedure. She was admitted to the hospital postoperatively. HOSPITALIZATION COURSE: The patient was admitted to the hospital after undergoing the above-listed procedure. Her postoperative course was uncomplicated. On postoperative day #1, her laboratory work was notable for a hemoglobin level that was stable at 10.8 and a serum creatinine that was 0.5. She had excellent urine output from her left nephrostomy catheter as well as her Nam catheter. By postoperative day #1, the output from both catheters were light pink to clear. Her left nephrostomy catheter was removed the morning of postoperative day #1. Subsequent to removal of left nephrostomy catheter, there was no change in appearance of urine from the Nam catheter. That, therefore, was removed an hour or two later. The patient subsequently voided without any difficulty. Her pain was well-controlled with oral pain medication. She was ambulating well. Her diet was advanced and she tolerated a regular diet. She was therefore deemed ready to go home on postoperative day #1. She was discharged home with a plan to follow up in urology clinic in approximately four weeks for stent removal. We will get imaging prior to removing her stent. FESTUS
== END 2020-11-14 14:15 | disposition home or self-care (01) | DRG 446 ==
LOC: M OR 06:08 → M MS5PR 12:00
PROVIDERS: ADMIT Urology; ATTEND Urology
PROC: 0TC78ZZ Extirpation of Matter from Left Ureter, Via Natural or Artificial Opening Endoscopic (ICD-10-PCS; 2020-11-13)
PROC: 0T778DZ Dilation of Left Ureter with Intraluminal Device, Via Natural or Artificial Opening Endoscopic (ICD-10-PCS; principal; 2020-11-13 07:30)
DX: N20.1 Calculus of ureter (principal); Z79.899 Other long term (current) drug therapy

== ENCOUNTER → 2020-12-12 | Outpatient (CLI) | payer BC ==
[~2020-12-12] MED LIST changes: +CIPR-249 PO; +DOK1CAP7 PO; +OXYB5TAB10 PO
--- NOTE | 2020-12-12 15:22 | REP ---
INDICATION: CALCULUS OF KIDNEY. COMPARISON: 11/13/2020. TECHNIQUE: Single view abdomen and pelvis. FINDINGS: There is a normal bowel gas pattern. There is a left ureteral stent, the proximal end is coiled in the region of the left pelvocaliceal system and the distal end in the region of the urinary bladder. Irregular calcific density just below the proximal pigtail measures approximately 12 x 4 mm. No other calcifications are visualized radiographically. IMPRESSION: Left ureteral stent. Irregular calcific density in the region of the lower pole left kidney measures 12 x 4 mm. <Electronically signed by Fernandez Richmond > 12/12/20 [id number]
== END ==
LOC: M RAD 14:46
PROVIDERS: ATTEND Physician Assistant
DX: N20.0 Calculus of kidney (principal); Z96.0 Presence of urogenital implants

== ENCOUNTER 2021-04-09 08:55 | Outpatient (RCR) | payer BC ==
[~2021-04-09 08:55] MED LIST changes: +DOK1CAP4 PO; -DOK1CAP7 PO
== END 2021-04-17 ==
LOC: M PT 08:55
PROVIDERS: ATTEND Psychiatry & Neurology Neurology
DX: R53.1 Weakness (principal); R48.2 Apraxia

== ENCOUNTER 2021-05-15 14:30 | Outpatient (RCR) | payer BC | END 2021-05-17 | LOC: M PT 14:30 | PROVIDERS: ATTEND Psychiatry & Neurology Neurology | DX: R53.1 Weakness (principal) ==

== ENCOUNTER 2021-05-24 08:26 | Outpatient (RCR) | payer BC | END 2021-06-17 | LOC: M PT 08:26 | PROVIDERS: ATTEND Psychiatry & Neurology Neurology | DX: R53.1 Weakness (principal) ==

== ENCOUNTER → 2021-06-07 | Outpatient (CLI) | payer BC ==
--- NOTE | 2021-06-07 11:58 | REP ---
INDICATION: CALCULUS OF KIDNEY COMPARISON: 12/12/2020 TECHNIQUE: Supine view of the abdomen and pelvis. FINDINGS: Bowel gas pattern is nonspecific and without obstruction or perforation. No organomegaly. Subtle calcifications overlie the lower pole left kidney.. Skeletal structures intact. IMPRESSION: Subtle left renal calculi suggested. <Electronically signed by Roni Krause > 06/07/21 [id number]
== END ==
LOC: M RAD 08:41 → M LAB 08:41
PROVIDERS: ATTEND Urology
DX: N20.0 Calculus of kidney (principal)

== ENCOUNTER 2022-01-21 22:03 | Inpatient (IN) | payer BC ==
[~2022-01-21] VITALS: Ht 170.2 cm; Wt 48.6 kg
[2022-01-21 22:43] LABS: HEMATOCRIT 36.2 % (36.0-47.0); HEMOGLOBIN 12.5 g/dl (12.0-15.5); MEAN CORPUSCULAR HEMOGLOBIN 31.3 pg (27.0-33.0); MEAN CORPUSCULAR HGB CONC 34.5 g/dl (32.0-36.5); MEAN CORPUSCULAR VOLUME 90.5 fl (80.0-96.0); PLATELET COUNT, AUTOMATED 256 10^3/uL (150-450); WHITE BLOOD COUNT 7.4 10^3/uL (4.0-10.0)
[2022-01-21] MEDS ORDERED: ONDANSETRON 4MG ORAL DISINTEGRATING TAB PO ONE (23:00)
[2022-01-21 23:14] LABS: ACETAMINOPHEN LEVEL < 2.0 UG/ML (10.0-30.0); ALBUMIN 3.6 GM/DL (3.2-5.2); ALT/SGPT 13 U/L (12-78); BILIRUBIN,DIRECT < 0.1 MG/DL (0.0-0.2); BILIRUBIN,TOTAL 0.3 MG/DL (0.2-1.0); BLOOD UREA NITROGEN 12 MG/DL (7-18); CALCIUM LEVEL 9.5 MG/DL (8.5-10.1); CARBON DIOXIDE LEVEL 27 MEQ/L (21-32); CHLORIDE LEVEL 111 MEQ/L (98-107); CREATININE FOR GFR 0.65 MG/DL (0.55-1.30); ETHYL ALCOHOL (ETHANOL) < 0.003 % (0.000-0.010); GLOMERULAR FILTRATION RATE > 60.0 (>60); GLUCOSE, FASTING 105 MG/DL (70-100); POTASSIUM SERUM 3.9 MEQ/L (3.5-5.1); SALICYLATE LEVEL < 1.7 MG/DL (5.0-30.0); SODIUM LEVEL 143 MEQ/L (136-145); TOTAL PROTEIN 6.7 GM/DL (6.4-8.2)
[2022-01-21 23:15] LABS: HCG, SERUM QUALITATIVE NEGATIVE (NEGATIVE)
[2022-01-21 23:17] LABS: RSV AMPLIFICATION NEGATIVE (NEGATIVE)
[2022-01-21] MEDS ORDERED: ACETAMINOPHEN TAB 650MG DOSE (2X325MG) PO ONE (23:25)
[2022-01-21 23:51] LABS: AMPHETAMINES LEVEL URINE NEGATIVE (NEGATIVE); BARBITURATES URINE NEGATIVE (NEGATIVE); BENZODIAZEPINES URINE NEGATIVE (NEGATIVE); CANNABINOIDS URINE NEGATIVE (NEGATIVE); COCAINE METABOLITE URINE NEGATIVE (NEGATIVE); METHADONE URINE NEGATIVE (NEGATIVE); OPIATES URINE NEGATIVE (NEGATIVE); PHENCYCLIDINE URINE NEGATIVE (NEGATIVE)
[2022-01-22] MEDS ORDERED: BUPR-332 PO (02:19)
[2022-01-22] MEDS ORDERED: LEXA1TAB2 PO (02:19)
[2022-01-22] MEDS ORDERED: DROS1TAB2 PO (02:19)
[2022-01-22] MEDS ORDERED: HOME MED LIST COMPLETE! XX SCH (02:20)
[2022-01-22] MEDS ORDERED: buPROPion 75 MG TAB PO SCH (09:00)
[2022-01-22] MEDS ORDERED: buPROPion **XL** TABLET 150MG (WELLBUTRIN XL) PO SCH (09:00)
[2022-01-22] MEDS ORDERED: ESCITALOPRAM OXALATE 10 MG TAB (LEXAPRO) PO SCH (09:00)
[2022-01-22] MEDS ORDERED: MOM 30ML SUSPENSION UDC PO PRN (22:00)
[2022-01-22] MEDS ORDERED: MAALOX 30 ML SUSP *UDC PO PRN (22:00)
[2022-01-22] MEDS ORDERED: traZODone 50 MG TAB PO PRN (22:00)
[2022-01-22] MEDS ORDERED: ACETAMINOPHEN TAB 650MG DOSE (2X325MG) PO PRN (22:00)
[2022-01-22 23:35] VITALS: BP 132/98
[2022-01-23 06:33] VITALS: BP 118/83
[2022-01-23] MEDS: buPROPion **XL** TABLET 150MG (WELLBUTRIN XL) PO SCH (08:07)
[2022-01-23] MEDS ORDERED: ESCITALOPRAM OXALATE 10 MG TAB (LEXAPRO) PO SCH (09:00)
[2022-01-23 16:51] VITALS: BP 127/90
[2022-01-24 07:25] VITALS: BP 116/70
[2022-01-24] MEDS ORDERED: ESCITALOPRAM OXALATE 10 MG TAB (LEXAPRO) PO SCH (09:00)
[2022-01-24] MEDS: buPROPion **XL** TABLET 150MG (WELLBUTRIN XL) PO SCH (09:19)
[2022-01-24 17:45] VITALS: BP 138/90
[2022-01-24] MEDS: ETHINYL ESTRADIOL PO SCH (21:16)
[2022-01-24] MEDS: RAMELTEON 8 MG TAB (ROZEREM) PO SCH (21:16)
[2022-01-24] MEDS: DROSPIRENONE PO SCH (21:16)
[2022-01-25 07:04] VITALS: BP 108/73
[2022-01-25] MEDS: VENLAFAXINE **XR** 37.5 MG CAPSULE PO SCH (08:09)
[2022-01-25] MEDS: buPROPion **XL** TABLET 150MG (WELLBUTRIN XL) PO SCH (08:09)
[2022-01-25 16:47] VITALS: BP 121/100
[2022-01-25] MEDS: RAMELTEON 8 MG TAB (ROZEREM) PO SCH (20:41)
[2022-01-25] MEDS: ETHINYL ESTRADIOL PO SCH (20:41)
[2022-01-25] MEDS: DROSPIRENONE PO SCH (20:41)
[2022-01-26 07:03] VITALS: BP 127/77
[2022-01-26] MEDS: VENLAFAXINE **XR** 37.5 MG CAPSULE PO SCH (08:18)
[2022-01-26] MEDS: buPROPion **XL** TABLET 150MG (WELLBUTRIN XL) PO SCH (08:18)
[2022-01-26 16:39] VITALS: BP 126/87
[2022-01-26] MEDS: DROSPIRENONE PO SCH (20:44)
[2022-01-26] MEDS: ETHINYL ESTRADIOL PO SCH (20:44)
[2022-01-26] MEDS: RAMELTEON 8 MG TAB (ROZEREM) PO SCH (20:44)
[2022-01-27 07:10] VITALS: BP 117/80
[2022-01-27] MEDS: buPROPion **XL** TABLET 150MG (WELLBUTRIN XL) PO SCH (08:44)
[2022-01-27] MEDS: VENLAFAXINE **XR** 75MG CAPSULE PO SCH (08:44)
[2022-01-27 16:40] VITALS: BP 112/80
[2022-01-27] MEDS: DROSPIRENONE PO SCH (21:47)
[2022-01-27] MEDS: RAMELTEON 8 MG TAB (ROZEREM) PO SCH (21:47)
[2022-01-27] MEDS: ETHINYL ESTRADIOL PO SCH (21:47)
[2022-01-28 06:34] VITALS: BP 125/82
[2022-01-28] MEDS: VENLAFAXINE **XR** 75MG CAPSULE PO SCH (08:22)
[2022-01-28] MEDS: buPROPion **XL** TABLET 150MG (WELLBUTRIN XL) PO SCH (08:22)
[2022-01-28] MEDS ORDERED: BUPR-332 PO (08:34)
[2022-01-28] MEDS ORDERED: TRAZ-252 PO (08:34)
[2022-01-28] MEDS ORDERED: RAME8TAB2 PO (08:34)
[2022-01-28] MEDS ORDERED: VENL75CA47 PO (08:34)
== END 2022-01-28 14:36 | disposition home or self-care (01) | DRG 751 ==
LOC: M ED 22:03 → M ED INP 01-22 21:57 → M PSY 01-22 23:15
PROVIDERS: ADMIT Student in an Organized Health Care Education/Training Program; ATTEND Student in an Organized Health Care Education/Training Program
DX: F33.1 Major depressive disorder, recurrent, moderate (principal); F64.9 Gender identity disorder, unspecified; F40.10 Social phobia, unspecified; F60.89 Other specific personality disorders; Z79.899 Other long term (current) drug therapy; Z91.030 Bee allergy status; Z20.822 Contact with and (suspected) exposure to COVID-19

== ENCOUNTER → 2022-03-18 | Outpatient (REF) | payer MEDICAID ==
[~2022-03-18] MED LIST changes: +BUPR-332 PO; +DROS1TAB2 PO; +HYDR-3363 PO; +LEXA1TAB2 PO; +RAME8TAB2 PO; +TRAZ-252 PO; +VENL75CA47 PO
== END ==
LOC: M PLALAB 13:35
PROVIDERS: ATTEND Nurse Practitioner Family
DX: Z12.4 Encounter for screening for malignant neoplasm of cervix (principal)

== ENCOUNTER → 2022-06-17 | Outpatient (CLI) | payer OTHER | LOC: M RAD 11:46 | PROVIDERS: ATTEND Urology | DX: N20.0 Calculus of kidney (principal) ==

== ENCOUNTER → 2022-08-26 | Outpatient (CLI) | payer OTHER ==
[2022-08-26 15:48] LABS: HEPATITIS B SURFACE ANTIGEN NEGATIVE (NEGATIVE)
[2022-08-26 16:01] LABS: HIV 1&2 SCREEN CENTAUR NEGATIVE (NEGATIVE)
[2022-08-26 16:10] LABS: HEPATITIS B CORE ANTIBODY IGM NEGATIVE (NEGATIVE)
== END ==
LOC: M PLALAB 12:22
PROVIDERS: ATTEND Nurse Practitioner Family
DX: Z11.3 Encounter for screening for infections with a predominantly sexual mode of transmission (principal)

== ENCOUNTER → 2022-08-26 | Outpatient (REF) | payer OTHER | LOC: M PLALAB 15:03 | PROVIDERS: ATTEND Nurse Practitioner Family | DX: Z53.9 Procedure and treatment not carried out, unspecified reason (principal) ==

== ENCOUNTER → 2022-11-27 | Outpatient (CLI) | payer OTHER | LOC: M RAD 09:48 | PROVIDERS: ATTEND Physician Assistant | DX: N23 Unspecified renal colic (principal); N28.1 Cyst of kidney, acquired; N13.30 Unspecified hydronephrosis ==

== ENCOUNTER → 2022-12-02 | Outpatient (CLI) | payer OTHER | LOC: M RAD 17:58 | PROVIDERS: ATTEND Physician Assistant | DX: N23 Unspecified renal colic (principal); N20.0 Calculus of kidney; Q63.1 Lobulated, fused and horseshoe kidney ==

== ENCOUNTER → 2023-01-10 | Outpatient (CLI) | payer OTHER ==
[~2023-01-10] MED LIST changes: +TAMS1CAP17 PO; +VESTURA PO
[2023-01-10 17:02] LABS: APPEARANCE, URINE HAZY (CLEAR); BACTERIA, URINE AUTO 2+ (NEGATIVE); BILIRUBIN, URINE AUTO NEGATIVE (NEGATIVE); BLOOD, URINE BLOOD NEGATIVE (NEGATIVE); COLOR, URINE YELLOW (YELLOW); GLUCOSE, URINE (UA) AUTO NEGATIVE (NEGATIVE); KETONE, URINE AUTO NEGATIVE (NEGATIVE); LEUKOCYTE ESTERASE, URINE AUTO 3+ (NEGATIVE); NITRITE, URINE AUTO NEGATIVE (NEGATIVE); PROTEIN, URINE AUTO NEGATIVE (NEGATIVE); RBC, URINE AUTO 2 /HPF (0-3); SPECIFIC GRAVITY URINE AUTO 1.009 (1.002-1.035); SQUAMOUS EPITHELIAL CELL UR AU 3 /HPF (0-6); UROBILINOGEN, URINE AUTO 0.2 mg/dL (0.0-2.0); WBC, URINE AUTO 11 /HPF (0-3)
== END ==
LOC: M LAB 16:13
PROVIDERS: ATTEND Physician Assistant
DX: Z01.818 Encounter for other preprocedural examination (principal)

== ENCOUNTER → 2023-01-13 | Outpatient (CLI) | payer OTHER ==
[2023-01-13 15:20] LABS: HEMATOCRIT 38.7 % (36.0-47.0); MEAN CORPUSCULAR HEMOGLOBIN 31.5 pg (27.0-33.0); MEAN CORPUSCULAR HGB CONC 33.6 g/dl (32.0-36.5); MEAN CORPUSCULAR VOLUME 93.7 fl (80.0-96.0); PLATELET COUNT, AUTOMATED 243 10^3/uL (150-450); RED BLOOD COUNT 4.13 10^6/uL (4.00-5.40); WHITE BLOOD COUNT 5.5 10^3/uL (4.0-10.0)
[2023-01-13 15:36] LABS: BLOOD UREA NITROGEN 9 MG/DL (9-23); CALCIUM LEVEL 8.9 MG/DL (8.5-10.1); CARBON DIOXIDE LEVEL 28 MMOL/L (20-31); CHLORIDE LEVEL 108 MMOL/L (98-107); CREATININE FOR GFR 0.83 MG/DL (0.55-1.30); GLOMERULAR FILTRATION RATE > 60.0 (>60); GLUCOSE, FASTING 93 MG/DL (60-100); SODIUM LEVEL 139 MMOL/L (136-145)
== END ==
LOC: M RAD 14:42
PROVIDERS: ATTEND Physician Assistant
DX: Z01.818 Encounter for other preprocedural examination (principal)

== ENCOUNTER 2023-01-16 07:47 | Day surgery (SDC) | payer OTHER ==
[~2023-01-16] VITALS: Ht 170.2 cm; Wt 49.4 kg
[~2023-01-16 07:47] MED LIST changes: +CEPH500C PO; +VENL75CA2 PO; +ceFAZolin SOD 2 GM in IV 1 EA IV ONE
[2023-01-16] MEDS ORDERED: LIDOCAINE 1% SDV 5ML VIAL SC PRN (09:25)
[2023-01-16] MEDS ORDERED: LR 1,000 ML IV SCH (09:25)
[2023-01-16] MEDS ORDERED: LIDOCAINE 2% 100MG/5ML SDV (FOR ANES.) As Ordered ONE (09:36)
[2023-01-16] MEDS ORDERED: MIDAZOLAM INJ 2MG/2ML VIAL As Ordered ONE ×2 (09:36→10:15)
[2023-01-16] MEDS ORDERED: fentaNYL 100 MCG/2 ML INJECTION As Ordered ONE (09:36)
[2023-01-16] MEDS ORDERED: propofoL 200 MG/20 ML VIAL As Ordered ONE (09:36)
[2023-01-16] MEDS ORDERED: ONDANSETRON 4MG 2ML VIAL As Ordered ONE (09:36)
[2023-01-16] MEDS ORDERED: ACETAMINOPHEN 1000MG 100ML IV BAG As Ordered ONE (09:40)
[2023-01-16] MEDS ORDERED: OXYC1TAB23 PO (10:20)
[2023-01-16 11:10] VITALS: BP 115/68
== END 2023-01-16 11:41 | disposition home or self-care (01) ==
LOC: M SDC 07:47
PROVIDERS: ATTEND Urology
DX: N20.0 Calculus of kidney (principal); F41.9 Anxiety disorder, unspecified; F32.A Depression, unspecified; Z79.899 Other long term (current) drug therapy
CPT/HCPCS: 50590; 74018; 81025; J0131; J0690; J1100; J2250; J2405; J3010

== ENCOUNTER → 2023-02-07 | Outpatient (CLI) | payer OTHER ==
[~2023-02-07] MED LIST changes: +OXYC1TAB23 PO; -ceFAZolin SOD 2 GM in IV 1 EA IV ONE
== END ==
LOC: M RAD 16:12
PROVIDERS: ATTEND Physician Assistant
DX: N20.0 Calculus of kidney (principal)

== ENCOUNTER → 2023-02-10 | Outpatient (REF) | payer MEDICAID, OTHER | LOC: M SMT 12:49 | PROVIDERS: ATTEND Physician Assistant | DX: Z48.816 Encounter for surgical aftercare following surgery on the genitourinary system (principal) ==

== ENCOUNTER → 2023-02-25 | Outpatient (REF) | payer OTHER ==
[2023-02-25 21:01] LABS: GC DNA AMPLIFICATION NEGATIVE (NEGATIVE)
== END ==
LOC: M LAB REF 16:41
PROVIDERS: ATTEND Physician Assistant
DX: R30.0 Dysuria (principal)

== ENCOUNTER → 2023-08-25 | Outpatient (CLI) | payer OTHER ==
[~2023-08-25] MED LIST changes: -OXYB5TAB10 PO; +OXYB5TAB11 PO
== END ==
LOC: M RAD 09:55
PROVIDERS: ATTEND Physician Assistant
DX: N20.0 Calculus of kidney (principal)

== ENCOUNTER → 2024-06-10 | Outpatient (REF) | payer OTHER, MEDICAID ==
[~2024-06-10] MED LIST changes: -OXYB5TAB11 PO; +OXYB5TAB14 PO
== END ==
LOC: M SFHCWAGY 14:54
PROVIDERS: ATTEND Nurse Practitioner Family
DX: Z12.4 Encounter for screening for malignant neoplasm of cervix (principal)